=== PATIENT | female | born 1980 | race Caucasian/White ===

== ENCOUNTER 2017-01-08 21:32 | Emergency (ER) | payer OTHER ==
--- NOTE | ~2017-01-08 | CR181 ---
[facility] A Service of [facility] & [facility] RADIOLOGY TEXT RESULTS PATIENT: TRISHA FOUNTAIN LOCATION: SED : 82 UNIT #: [id number] AGE: [address]: Olimpia Dietrich APRN SEX: F ORDER DR: [id number] [address] [address] [id number] E MR#: [id number] Acc #: [id number] NAME: TRISHA FOUNTAIN : 1980 SEX: F STUDY DATE/TIME: 01/08/2017 21:24 UNIT: SED ROOM: STUDY DESCRIPTION: CR Lumbar Spine 2 or 3 Views Attending Physician: Olimpia Dietrich A.P.R.N. Ordering Physician: Olimpia Tripp A.P.R.N. Primary Care Physician: No Primary Care Physician MEDICAL IMAGING REPORT This report is preliminary unless electronic signature is present. EXAM Lumbar spine series. DATE OF EXAM 01/08/2017 HISTORY 36-year-old female in the ED complaining of low back pain after falling down steps earlier today. TECHNIQUE 3 view lumbar spine series. FINDINGS No fracture or other acute osseous abnormality is demonstrated. Jnrj-ho-jreucpit degenerative disc space narrowing at L5-S1. Remaining lumbar disc spaces appear normal. Mild lower lumbar degenerative facet arthropathy. Lumbar vertebral alignment is normal. IMPRESSION 1. No fracture or other acute osseous abnormality is demonstrated. 2. Degenerative disc disease at L5-S1 with mild lower lumbar degenerative facet arthropathy. Dictated by... Tahir Mora M.D. THIS IS AN ELECTRONICALLY VERIFIED REPORT Tahir Mora M.D. at 01/09/2017 10:18 PM GRAHAM/constantino TD: 01/08/2017 23:25 [facility] A Service [facility] RADIOLOGY TEXT RESULTS PATIENT: TRISHA FOUNTAIN LOCATION: SED : 82 UNIT #: [id number] AGE: [address]: Olimpia Dietrich APRN SEX: F ORDER DR: JOB #: [id number] MEDICAL IMAGING REPORT Page 1 of 1
--- NOTE | ~2017-01-08 | CR229 ---
[facility]. [facility] A Service of [facility] RADIOLOGY TEXT RESULTS PATIENT: TRISHA FOUNTAIN LOCATION: SED : 81 UNIT #: [id number] AGE: [address]: Olimpia Dietrich APRN SEX: F ORDER DR: [id number] [address] [address] [id number] E MR#: [id number] Acc #: [id number] NAME: TRISHA FOUNTAIN : 1980 SEX: F STUDY DATE/TIME: 01/08/2017 21:24 UNIT: SED ROOM: STUDY DESCRIPTION: CR Shoulder Min 2 View Lt Attending Physician: Olimpia Dietrich A.P.R.N. Ordering Physician: Olimpia Tripp A.P.R.N. MEDICAL IMAGING REPORT This report is preliminary unless electronic signature is present. EXAM Left shoulder 01/08/2017 HISTORY 36-year-old female in the ED with left shoulder pain after fall down stairs earlier today. TECHNIQUE Three-view left shoulder series. FINDINGS No fracture, dislocation or other acute osseous abnormality is demonstrated. IMPRESSION Negative left shoulder series. Dictated by... Tahir Mora M.D. THIS IS AN ELECTRONICALLY VERIFIED REPORT Tahir Mora M.D. at 01/09/2017 5:58 AM GRAHAM/kellee TD: 01/08/2017 23:03 JOB #: [id number] MEDICAL IMAGING REPORT Page 1 of 1
[~2017-01-08 21:32] MED LIST: IBUPROFEN PO; NAPROXEN PO
== END 2017-01-08 22:39 | disposition home or self-care (01) ==
LOC: SED 21:32
DX: S46.912A Strain of unspecified muscle, fascia and tendon at shoulder and upper arm level, left arm, initial encounter (principal); S39.012A Strain of muscle, fascia and tendon of lower back, initial encounter; I10 Essential (primary) hypertension; F32.9 Major depressive disorder, single episode, unspecified; Z88.8 Allergy status to other drugs, medicaments and biological substances; W10.9XXA Fall (on) (from) unspecified stairs and steps, initial encounter; Y92.009 Unspecified place in unspecified non-institutional (private) residence as the place of occurrence of the external cause
CPT/HCPCS: 72100; 73030; 99284